=== PATIENT | male | born 1970 | race African-American/Black ===

== ENCOUNTER 2023-02-09 08:16 | Emergency (ER) | payer SELFPAY ==
[~2023-02-09] VITALS: Ht 180.3 cm; Wt 106.0 kg
[2023-02-09] VITALS (7 sets, daily range): BP systolic 122–157; BP diastolic 80–114
[2023-02-09] MEDS ORDERED: TRAMADOL HYDROC50 M1 PO (10:32)
[2023-02-09] MEDS ORDERED: IBUPROFEN600 MG PO (10:40)
== END 2023-02-09 10:51 | disposition home or self-care (01) | DRG 999 ==
LOC: ED 08:16
DX: M25.512 Pain in left shoulder (principal); S06.9X1A Unspecified intracranial injury with loss of consciousness of 30 minutes or less, initial encounter; R07.81 Pleurodynia; M79.672 Pain in left foot; M79.671 Pain in right foot; W11.XXXA Fall on and from ladder, initial encounter; Y92.89 Other specified places as the place of occurrence of the external cause; Y99.0 Civilian activity done for income or pay; Z87.891 Personal history of nicotine dependence